=== PATIENT | male | born 1935 | race Caucasian/White ===

== ENCOUNTER 2016-07-17 15:17 | Inpatient (IN) | payer MEDICARE ==
--- NOTE | ~2016-07-17 | HP ---
History And Physical [place] [facility] [place]. [address] NAME: LORNA ENGLAND : 39 STATUS : ADM IN [facility]#: [id number] AGE: 80 ADM/REG DATE : 07/17/16 MR#: [id number] REPORT SERV DATE: 07/17/16 DICTATED BY: EMMETT PANIAGUA DATE: 07/17/16 REPORT STATUS : Draft TRANSCRIBED BY: MODAyla DATE: 07/17/16 DATE OF ADMISSION: 07/17/2016 POINT OF ENTRY: [facility] Emergency Department. PRIMARY COIL WINDER STRAP: Dr. oMhamud. The patient cannot tell me the name of his primary predatory animal hunter at this time. CHIEF COMPLAINT: Shortness of breath and chest pain. HISTORY OF PRESENT ILLNESS: Mr. England is a 80-year-old gentleman with history of COPD, on 3 L by nasal cannula; chronic systolic congestive heart failure, last known ejection fraction approximately 40% to 45%; krr-mbihzmp-ikpvckuiz diabetes mellitus type 2 as well as coronary artery disease, who presents to the emergency department today with a few day history of shortness of breath as well as intermittent episodes of chest pain. The patient currently is on BiPAP and difficult to get history from the patient, but he states that he is having a few days worth of shortness of breath as well as associated wheezing, cough, and occasional sputum production. The patient also reports diffuse anterior chest pain that is intermittent in nature. Denies any radiation to the neck, back, jaw, or left shoulder. The patient reports compliance with his medications, including his Lasix which is on a p.r.n. basis. States he has not used it recently. He denies any lower extremity edema. Initial evaluation in the emergency department notable for an ABG that appears to be well compensated; however, he was taken on 6 L by nasal cannula. Despite ABG, the patient was placed on BiPAP here in the ER for concerns for respiratory distress and impending respiratory fatigue and failure. Remainder of his labs otherwise unremarkable, except for a white count of 14,500. Troponin and BNP are pending at the time of dictation. Chest x-ray does show evidence of volume overload and heart failure. The patient was given Solu-Medrol as well as some IV Lasix as well as placed on BiPAP and admitted to the Hospitalist Service. REVIEW OF SYSTEMS: Comprehensive review of system otherwise negative unless listed in history of present illness. PREVIOUS MEDICAL HISTORY: 1. COPD, on 3 L by nasal cannula. 2. Chronic systolic congestive heart failure, last known ejection fraction of 40% to 45%. 3. Hgs-dzkoxao-xevfgxgfw diabetes mellitus type 2. 4. History of prostate cancer status post prostatectomy. 5. Coronary artery disease with prior coronary artery bypass grafting. 6. Atrial fibrillation, status post cardiac ablation and pacemaker insertion. 7. BPH. History And Physical [address] [address] NAME: LORNA ENGLAND : 39 STATUS : ADM IN [facility]#: [id number] AGE: 80 ADM/REG DATE : 07/17/16 MR#: [id number] REPORT SERV DATE: 07/17/16 DICTATED BY: EMMETT PANIAGUA DATE: 07/17/16 REPORT STATUS : Draft TRANSCRIBED BY: TAMMIE DATE: 07/17/16 8. Hypertension. 9. Hyperlipidemia. 10.History of peripheral arterial disease with bilateral lower extremity revascularization. SURGICAL HISTORY: 1. Cardiac ablation. 2. Pacemaker. 3. CABG. 4. Bilateral orchiectomy. 5. Prostatectomy. 6. C-spine surgery. 7. Umbilical hernia repair surgery. 8. Back surgery. ALLERGIES: NO KNOWN DRUG ALLERGIES. HOME MEDICATIONS: 1. Xanax 0.5 mg q.h.s. 2. Lipitor 40 mg daily. 3. Symbicort two puffs inhalation b.i.d. 4. Carvedilol 12.5 mg b.i.d. 5. Nexium 40 mg daily. 6. Lasix 40 mg daily p.r.n. 7. Atrovent one nebulization q.i.d. p.r.n. 8. Losartan 100 mg daily p.r.n. 9. Metformin 500 mg daily p.r.n. 10.Percocet 10/325 one tablet t.i.d. p.r.n. 11.Potassium chloride 10 mEq daily p.r.n. 12.Seroquel 100 mg q.h.s. SOCIAL HISTORY: He does state he smokes about four to five cigarettes daily. Denies alcohol. Denies illicits. FAMILY MEDICAL HISTORY: Mother with diabetes. Father of complicated congestive heart failure. Siblings with lung cancer. LABORATORIES AND IMAGIN. White count is 14.5, hemoglobin is 12.0, hematocrit is 38.5, platelet count is 183. Neutrophil percentage is 85%. 2. Sodium is 141, potassium 4.4, chloride 105, carbon dioxide 30, BUN 9, creatinine 0.86. 3. Glucose is 165, calcium is 8.5. 4. ABG; pH is 7.38, pCO2 is 47, pO2 is 154, bicarbonate is 27, saturating 90% on 6 L by nasal cannula. 5. EKG per my review shows ventricular paced rhythm. No evidence of any acute ischemia or infarction. 6. Chest x-ray per my review shows cardiomegaly with pacemaker in place. Left base is not History And Physical [address] [address] NAME: LORNA ENGLAND : 37 STATUS : ADM IN [facility]#: [id number] AGE: 80 ADM/REG DATE : 07/17/16 MR#: [id number] REPORT SERV DATE: 07/17/16 DICTATED BY: EMMETT PANIAGUA DATE: 07/17/16 REPORT STATUS : Draft TRANSCRIBED BY: TAMMIE DATE: 07/17/16 well visualized, but does show evidence of heart failure with intravascular volume overload and pulmonary venous congestion. 7. BNP and troponin are pending. PHYSICAL EXAMINATION: VITAL SIGNS: Temperature is 99.1 degrees Fahrenheit, pulse is 70, respirations 14, and saturating 91% on 6 L by nasal cannula, blood pressure 107/57. On recheck, it is now 90s/60s. Saturating well on 30% BiPAP. GENERAL: The patient is asleep, but easily awakens to verbal stimuli. BiPAP is in place. He is a well-developed, well-nourished, obese, male, in no acute distress. HEENT: Atraumatic and normocephalic. Moist mucous membranes. Pupils are equal, round, reactive to light and accommodation. Extraocular movements intact. No scleral icterus. NECK: No jugular venous distention. No carotid bruits. CARDIAC: Regular rate and rhythm. No murmurs, rubs, or gallops. Normal S1 and S2. LUNGS: On BiPAP, does not appear in any distress at this time. Does have diffuse inspiratory wheezes, rales as well as occasional rhonchi in all lung redd. Decreased breath sounds in the bases. ABDOMEN: Obese, soft, nontender, nondistended. Good bowel sounds. No rebound, guarding, or rigidity. EXTREMITIES: Warm and well perfused. No cyanosis or clubbing. Has trace pedal edema. SKIN: Warm and dry. PSYCH: Affect appropriate. NEURO: Somewhat sedated, but easily awakens to verbal stimuli. Cranial nerves II through XII are grossly intact. Speech is normal. Gait not assessed. ASSESSMENT: Mr. England is a 80-year-old gentleman, presents with chest pain, shortness of breath, and found to have evidence of volume overload as well as acute hypoxic respiratory failure and respiratory distress and placed on BiPAP. PROBLEM LIST: 1. Xqvna-vg-rpkabim systolic congestive heart failure. 2. Ihcug-gg-dxbcaft hypoxic respiratory failure. 3. Respiratory distress, requiring BiPAP. 4. Acute chronic obstructive pulmonary disease exacerbation. 5. Chest pain. 6. Leukocytosis. 7. Awx-tdxnntv-rnaewlkhl diabetes mellitus type 2. PLAN: 1. Ppglj-xe-osbgwjj systolic congestive heart failure. According to chest x-ray, he appears to be grossly volume overload. BNP is pending at the time of dictation. We will place the patient on IV Lasix for first 24 hours as well as fluid and sodium restriction and check echocardiogram. 2. Acute COPD exacerbation. Place the patient on steroids, antibiotics as well as frequent bronchodilators and nebulizations. 3. Kztai-gg-oqadkta hypoxic respiratory failure and respiratory distress. The patient now appears much more comfortable on BiPAP therapy, despite an ABG appears to be well History And Physical [address] [address] NAME: LORNA ENGLAND : 39 STATUS : ADM IN PAT#: [id number] AGE: 80 ADM/REG DATE : 07/17/16 MR#: [id number] REPORT SERV DATE: 07/17/16 DICTATED BY: EMMETT PANIAGUA DATE: 07/17/16 REPORT STATUS : Draft TRANSCRIBED BY: TAMMIE DATE: 07/17/16 compensated. We will recheck an ABG later tonight to continue to monitor the patient's respiratory status. We will try to wean the patient off BiPAP sometime in the morning after treatment with appropriate COPD and CHF protocols. 4. Chest pain. EKG is nonischemic. We will continue to monitor with cardiac telemetry. Initial troponin is pending. We will continue to trend out cardiac enzymes overnight. 5. Leukocytosis, likely secondary to the patient's respiratory difficulties. I do not appreciate any evidence of pneumonia at this time. Checking urinalysis as well as procalcitonin. 6. DVT prophylaxis. Lovenox subcutaneously. CODE STATUS: The patient wished to be full code. JCB/MODL Emmett Paniagua MD / [id number] CC: MD Reza Flores M.D.
--- NOTE | ~2016-07-17 | DS ---
Discharge Summary [facility] [address] [place]. [address] NAME: LORNA SANCHEZ : 39 STATUS : ADM IN [facility]#: [id number] AGE: 80 ADM/REG DATE : 07/17/16 MR#: [id number] REPORT SERV DATE: 07/21/16 DICTATED BY: EMMETT OHARA II DATE: 07/21/16 REPORT STATUS : Draft TRANSCRIBED BY: MODL DATE: 07/21/16 ADMISSION DATE: 07/17/2016 DISCHARGE DATE: 07/21/2016 DISCHARGE DIAGNOSIS: 1. Acute on chronic hypoxic respiratory failure, on 3 L at home. 2. Acute exacerbation of chronic obstructive pulmonary disease. 3. Acute on chronic systolic congestive heart failure, EF 40-45%. 4. Constipation. 5. Morbid obesity. 6. Obstructive sleep apnea. 7. Diabetes mellitus type 2, noninsulin dependent. 8. History of coronary artery disease. 9. History of atrial fibrillation. 10.History of benign prostatic hyperplasia. 11.History of hypertension. BRIEF HISTORY OF PRESENT ILLNESS: The patient is a 80-year-old male with the above history, who presented to [facility] due to worsening shortness of breath and intermittent episodes of chest pain. For detailed history and physical examination, please see Dr. Vila's note from 07/17/2016. HOSPITAL COURSE: On admission, the patient was saturating 90% on 6 L with an ABG of 7.38/47/154. The EKG was V paced with no evidence of ischemia, and troponin was negative. Chest x-ray showed cardiomegaly with a pacemaker in place and evidence of CHF, volume overload, and pulmonary venous congestion. His BNP was not extremely elevated and only 50, and he also likely had a COPD component with diffuse wheezes. He was given IV diuretics and treated in the usual fashion for COPD with gradual improvement. Currently, he is back to his home O2 dose of 3 L. He still has some coarseness in his lungs but wheezing is improved. We will taper his steroids and discontinue Levaquin which he has gotten five days off. We will also change his Lasix from p.r.n. to 40 mg daily. Otherwise at this point he appears to be back to his baseline and stable for discharge. His creatinine is 1.0, potassium 4.5. DISCHARGE MEDICATIONS: 1. Lipitor 40 mg p.o. daily. 2. Coreg 12.5 mg p.o. b.i.d. 3. Lasix 40 mg p.o. daily. 4. Nexium 40 mg p.o. daily. 5. MiraLAX 2 packets p.o. daily. 6. Seroquel 100 mg p.o. at bedtime. 7. Xanax 0.5 mg p.o. at bedtime. 8. Prednisone 20 mg p.o. daily x3 more days. 9. Symbicort two puffs inhaled b.i.d. 10.Cozaar 100 mg p.o. daily. 11.Percocet 10/325 mg p.o. t.i.d. p.r.n. pain. Discharge Summary [address] [address] NAME: LORNA SANCHEZ : 39 STATUS : ADM IN [facility]#: [id number] AGE: 80 ADM/REG DATE : 07/17/16 MR#: [id number] REPORT SERV DATE: 07/21/16 DICTATED BY: EMMETT OHARA II DATE: 07/21/16 REPORT STATUS : Draft TRANSCRIBED BY: TAMMIE DATE: 07/21/16 12.Potassium chloride 100 mg p.o. daily. 13.Metformin 250-500 mg p.o. daily. 14.Atrovent one neb inhaled q.4 times a day p.r.n. 15.MiraLAX 600 mg p.o. b.i.d. x7 days. DISCHARGE INSTRUCTIONS: The patient will follow up with Dr. Spears in one to two weeks. Otherwise, Dr. Mohamud in three to four weeks. DICTATED BY: MD CORBIN Rios II/TAMMIE Emmett Ohara II, MD / [id number] CC: MD Reza Rios II, M.D.
[2016-07-17 14:37] LABS: BASOPHILS ABSOLUTE 0.02 10/3/uL (0.0-0.16)
[2016-07-17 14:39] LABS: MANUAL DIFF NO %
[2016-07-17 14:51] LABS: GFR AFRICAN AMERICAN 96 ML/MIN (>=60); GFR NON AFRICAN AMERICAN 83 ML/MIN (>=60)
[2016-07-17 15:03] LABS: ASCORBIC ACID (UR NOT ORDER) NEG (NEG); BILIRUBIN, URINE NEGATIVE (NEG); KETONE, URINE NEGATIVE (NEG); LEUKOCYTE ESTERASE(NOT OR NEG (NEG); NITRITE (URINE) NEG (NEG); WBC (NOT ORDERED) (RFLEX) < 1 (0-5)
[2016-07-17 15:14] LABS: ALLENS TEST Pos; BE (BASE EXCESS) 1.5 MEQ/L (0 +/- 2.5); CARBOXYHEMOGLOBIN 2.3 % (0-3); DEVICE nc; HCO3 (ACTUAL BICARBONATE) 27.2 MEQ/L (23-27); INSTRUMENT SERIAL # 8087; METHEMOGLOBIN 0.3 % (0-3); O2 CONTENT 17.9 VOL% (18-24); OPERATOR ID 14335; PCO2 (CO2 TENSION) 47 MMHG (35-45); PO2 (O2 TENSION) 154 MMHG (79-93); SAMPLE Arterial; pH 7.38 (7.37-7.43)
[2016-07-17 15:15] LABS: LACTATE 1.4 MMOL/L (0.3-2.4)
[~2016-07-17 15:17] MED LIST: ADVAIR; ADVAIR INHALER; ADVAIR230P INH; ADVAIR250 INH; ALTA2.5 PO; AMIT100 PO; AMIT25 PO; AMOXIL500 MG PO; APRES25 PO; ASA5GR PO; ASAB PO; ASABAYER PO; CANNOT RECALL MEDS; COREG3 PO; CORRECTOL5 MG PO; COZAAR100 MG PO; DSS PO; DUONEB INH; FLAG500TAB PO; FLOMAX4 PO; GLUCPH PO; IMDUR30 PO; ISOSORB DIN30 MG PO; K500 PO; KLOR-CON M2020 MEQ PO; L20 PO; L40 PO; LEVAQUIN750 MG PO; LIPITOR40 PO; LORTAB10 PO; LUPRON DEPOT30 MG IM; MIRALAXPKT PO; MONODOX100 MG PO; NASAL DECONGESTANT PO; NEXIUM40 PO; NITROSTAT0.4 MG SL; NORCO1 TAB PO; NYS500UDL PO; OMNICEF300 PO; P10 PO; P20 PO; PLAVIX PO; PR12.5 PO; PREV30 PO; PRIN2.5 PO; PROAIR HFA INH; PROSCAR5 PO; T100 PO; T300 PO; X5 PO
[2016-07-17] MEDS ORDERED: LIPITOR40 PO (15:29)
[2016-07-17] MEDS ORDERED: COREG12 PO (15:29)
[2016-07-17] MEDS ORDERED: SYMBICORT 160/41 INH INH (15:29)
[2016-07-17] MEDS ORDERED: X5 PO (15:30)
[2016-07-17] MEDS ORDERED: COZ50 PO (15:30)
[2016-07-17] MEDS ORDERED: SEROQUEL1C PO (15:30)
[2016-07-17] MEDS ORDERED: PERCOCET 10/3251 TAB PO (15:30)
[2016-07-17] MEDS ORDERED: KLOR-CON M2020 MEQ PO (15:31)
[2016-07-17] MEDS ORDERED: L40 PO (15:31)
[2016-07-17] MEDS ORDERED: NEXIUM40 PO (15:32)
[2016-07-17] MEDS ORDERED: GLUCPH PO (15:32)
[2016-07-17 16:27] LABS: ER CBC TAT 1 Hrs 56 Mins; RED CELL COUNT 4.17 10/6/uL (4.7-6.1); WHITE BLOOD CELLS 14.5 10/3/uL (4.5-10.5)
[2016-07-17 16:28] LABS: HEMATOCRIT 38.5 % (40.0-51.0); MEAN CORPUSCULAR HEMOGLOB 28.8 pg (26.0-34.0); MEAN CORPUSCULAR VOLUME 92.3 fL (80-100)
[2016-07-17 16:29] LABS: MEAN CORPUS HGB CONC 31.2 g/dL (32.0-36.0); MEAN PLATELET VOLUME 9.6 fL (9.2-13.0); PLATELET COUNT 183 10/3/uL (150-400); RBC DISTRIBUTION WIDTH 14.3 % (12.0-16.0)
[2016-07-17 16:30] LABS: LYMPHOCYTES 8.6 %; NEUTROPHILS 84.7 %
[2016-07-17 16:31] LABS: BASOPHILS 0.1 %; BUN (BLOOD UREA NITROGEN) 9 MG/DL (6-23); CHLORIDE, SERUM 105 MMOL/L (96-112); CO2 (CARBON DIOXIDE) 30 MMOL/L (24-34); CREATININE 0.86 MG/DL (0.70-1.30); IMMATURE GRANULOCYTES 0.3 %; MONOCYTES 5.3 %; POTASSIUM, SERUM 4.4 MMOL/L (3.5-5.3); SODIUM, SERUM 141 MMOL/L (135-148)
[2016-07-17 16:32] LABS: CALCIUM, SERUM 8.5 MG/DL (8.5-10.4); EOSINOPHILS ABSOLUTE 0.14 10/3/uL (0.0-0.53); GLUCOSE, SERUM 165 MG/DL (60-99); IMMATURE GRANULOCYTES ABSOLUTE 0.04 10/3/uL (0.0-0.11); LYMPHOCYTES ABSOLUTE 1.25 10/3/uL (0.67-4.30); MONOCYTES ABSOLUTE 0.77 10/3/uL (0.21-1.20); NEUTROPHILS ABSOLUTE 12.28 10/3/uL (2.02-8.40)
[2016-07-17 16:38] LABS: PROCALCITONIN <0.05 ng/mL (<0.5)
[2016-07-17 17:47] LABS: AMPHETAMINES (NOT ORD) NEG (NEG); BARBITURATES (NOT ORDERED NEG (NEG); BENZODIAZEPINES (NOT ORD) NEG (NEG); CANNABINOIDS (THC) NEG (NEG); COCAINE (NOT ORDERED) NEG (NEG); OPIATES POS (NEG); PHENCYCLIDINE(PCP) NEG (NEG); TRICYCLICS NEG (NEG)
[2016-07-17 18:04] LABS: TROPONIN I <0.02 NG/ML (<0.05)
[2016-07-17 21:47] LABS: TROPONIN I <0.02 NG/ML (<0.05)
[2016-07-17 21:48] LABS: CK-MB 0.9 NG/ML; CPK 127 U/L (0-200)
[2016-07-17 23:57] LABS: ALLENS TEST Pos; BIPAP 15/5 cm.H2O; CARBOXYHEMOGLOBIN 0.9 % (0-3); HCO3 (ACTUAL BICARBONATE) 26.4 MEQ/L (23-27); HEMOBLOGIN CONTENT 12.5 G/DL (14-18); INSTRUMENT SERIAL # 8083; METHEMOGLOBIN 0.2 % (0-3); O2 CONTENT 16.7 VOL% (18-24); OPERATOR ID 30013; PCO2 (CO2 TENSION) 45 MMHG (35-45); PO2 (O2 TENSION) 81 MMHG (79-93); SAMPLE Arterial; pH 7.39 (7.37-7.43)
[2016-07-18 04:40] LABS: BASOPHILS 0 %; EOSINOPHILS 0 %; HEMATOCRIT 36.9 % (40.0-51.0); HEMOGLOBIN 11.8 g/dL (13.6-17.8); IMMATURE GRANULOCYTES 0.4 %; IMMATURE GRANULOCYTES ABSOLUTE 0.05 10/3/uL (0.0-0.11); LYMPHOCYTES ABSOLUTE 0.69 10/3/uL (0.67-4.30); MEAN CORPUSCULAR HEMOGLOB 29.1 pg (26.0-34.0); MEAN CORPUSCULAR VOLUME 91.1 fL (80-100); MEAN PLATELET VOLUME 9.4 fL (9.2-13.0); MONOCYTES 1.9 %; MONOCYTES ABSOLUTE 0.26 10/3/uL (0.21-1.20); NEUTROPHILS 92.7 %; NEUTROPHILS ABSOLUTE 12.83 10/3/uL (2.02-8.40); PLATELET COUNT 175 10/3/uL (150-400); RBC DISTRIBUTION WIDTH 14.1 % (12.0-16.0); RED CELL COUNT 4.05 10/6/uL (4.7-6.1); WHITE BLOOD CELLS 13.8 10/3/uL (4.5-10.5)
[2016-07-18 04:55] LABS: MANUAL DIFF NO %
[2016-07-18 05:01] LABS: CALCIUM, SERUM 8.9 MG/DL (8.5-10.4); CHLORIDE, SERUM 102 MMOL/L (96-112); CO2 (CARBON DIOXIDE) 26 MMOL/L (24-34); CPK 144 U/L (0-200); CREATININE 1.11 MG/DL (0.70-1.30); GFR AFRICAN AMERICAN 73 ML/MIN (>=60); GFR NON AFRICAN AMERICAN 63 ML/MIN (>=60); POTASSIUM, SERUM 4.4 MMOL/L (3.5-5.3); SODIUM, SERUM 138 MMOL/L (135-148); TROPONIN I <0.02 NG/ML (<0.05)
[2016-07-18 05:05] LABS: BUN (BLOOD UREA NITROGEN) 16 MG/DL (6-23); CK-MB 1.4 NG/ML; GLUCOSE, SERUM 205 MG/DL (60-99)
[2016-07-19 05:58] LABS: BASOPHILS 0.1 %; BASOPHILS ABSOLUTE 0.01 10/3/uL (0.0-0.16); EOSINOPHILS 0 %; HEMATOCRIT 37.9 % (40.0-51.0); HEMOGLOBIN 12.1 g/dL (13.6-17.8); IMMATURE GRANULOCYTES 0.6 %; IMMATURE GRANULOCYTES ABSOLUTE 0.11 10/3/uL (0.0-0.11); MEAN CORPUS HGB CONC 31.9 g/dL (32.0-36.0); MEAN CORPUSCULAR HEMOGLOB 28.7 pg (26.0-34.0); MEAN PLATELET VOLUME 9.5 fL (9.2-13.0); MONOCYTES 3.6 %; MONOCYTES ABSOLUTE 0.65 10/3/uL (0.21-1.20); NEUTROPHILS 90.7 %; NEUTROPHILS ABSOLUTE 16.19 10/3/uL (2.02-8.40); PLATELET COUNT 222 10/3/uL (150-400); RBC DISTRIBUTION WIDTH 13.8 % (12.0-16.0); RED CELL COUNT 4.21 10/6/uL (4.7-6.1); WHITE BLOOD CELLS 17.9 10/3/uL (4.5-10.5)
[2016-07-19 05:59] LABS: MANUAL DIFF NO %
[2016-07-19 06:18] LABS: ALBUMIN 3.2 G/DL (3.5-5.0); BUN (BLOOD UREA NITROGEN) 28 MG/DL (6-23); CALCIUM, SERUM 9.5 MG/DL (8.5-10.4); CHLORIDE, SERUM 101 MMOL/L (96-112); CO2 (CARBON DIOXIDE) 28 MMOL/L (24-34); CREATININE 1.07 MG/DL (0.70-1.30); GFR AFRICAN AMERICAN 77 ML/MIN (>=60); GFR NON AFRICAN AMERICAN 66 ML/MIN (>=60); GLUCOSE, SERUM 175 MG/DL (60-99); PHOSPHORUS, SERUM 3.5 MG/DL (2.5-4.5); POTASSIUM, SERUM 4.2 MMOL/L (3.5-5.3); SODIUM, SERUM 137 MMOL/L (135-148)
[2016-07-20 05:14] LABS: BASOPHILS 0.1 %; BASOPHILS ABSOLUTE 0.01 10/3/uL (0.0-0.16); EOSINOPHILS 0 %; HEMATOCRIT 38.2 % (40.0-51.0); HEMOGLOBIN 12.3 g/dL (13.6-17.8); IMMATURE GRANULOCYTES 0.6 %; IMMATURE GRANULOCYTES ABSOLUTE 0.09 10/3/uL (0.0-0.11); LYMPHOCYTES 7.5 %; LYMPHOCYTES ABSOLUTE 1.05 10/3/uL (0.67-4.30); MEAN CORPUS HGB CONC 32.2 g/dL (32.0-36.0); MEAN CORPUSCULAR HEMOGLOB 29.1 pg (26.0-34.0); MEAN CORPUSCULAR VOLUME 90.5 fL (80-100); MEAN PLATELET VOLUME 9.1 fL (9.2-13.0); MONOCYTES ABSOLUTE 0.56 10/3/uL (0.21-1.20); NEUTROPHILS 87.8 %; NEUTROPHILS ABSOLUTE 12.26 10/3/uL (2.02-8.40); PLATELET COUNT 230 10/3/uL (150-400); RED CELL COUNT 4.22 10/6/uL (4.7-6.1)
[2016-07-20 05:15] LABS: MANUAL DIFF NO %
[2016-07-20 05:30] LABS: BUN (BLOOD UREA NITROGEN) 30 MG/DL (6-23); CALCIUM, SERUM 9.2 MG/DL (8.5-10.4); CHLORIDE, SERUM 101 MMOL/L (96-112); CO2 (CARBON DIOXIDE) 31 MMOL/L (24-34); GFR AFRICAN AMERICAN 83 ML/MIN (>=60); GFR NON AFRICAN AMERICAN 72 ML/MIN (>=60); GLUCOSE, SERUM 173 MG/DL (60-99); POTASSIUM, SERUM 4.5 MMOL/L (3.5-5.3); SODIUM, SERUM 140 MMOL/L (135-148)
[2016-07-21 07:20] LABS: BASOPHILS 0.2 %; BASOPHILS ABSOLUTE 0.02 10/3/uL (0.0-0.16); EOSINOPHILS 0.1 %; EOSINOPHILS ABSOLUTE 0.01 10/3/uL (0.0-0.53); HEMATOCRIT 40.6 % (40.0-51.0); HEMOGLOBIN 12.7 g/dL (13.6-17.8); IMMATURE GRANULOCYTES 1.4 %; IMMATURE GRANULOCYTES ABSOLUTE 0.16 10/3/uL (0.0-0.11); LYMPHOCYTES 23.4 %; LYMPHOCYTES ABSOLUTE 2.62 10/3/uL (0.67-4.30); MEAN CORPUS HGB CONC 31.3 g/dL (32.0-36.0); MEAN CORPUSCULAR HEMOGLOB 28.5 pg (26.0-34.0); MEAN CORPUSCULAR VOLUME 91.2 fL (80-100); MEAN PLATELET VOLUME 8.8 fL (9.2-13.0); MONOCYTES 7.9 %; MONOCYTES ABSOLUTE 0.89 10/3/uL (0.21-1.20); NEUTROPHILS ABSOLUTE 7.51 10/3/uL (2.02-8.40); PLATELET COUNT 203 10/3/uL (150-400); RBC DISTRIBUTION WIDTH 14.3 % (12.0-16.0); RED CELL COUNT 4.45 10/6/uL (4.7-6.1); WHITE BLOOD CELLS 11.2 10/3/uL (4.5-10.5)
[2016-07-21 07:21] LABS: MANUAL DIFF NO %
[2016-07-21 07:26] LABS: CALCIUM, SERUM 9.2 MG/DL (8.5-10.4); CHLORIDE, SERUM 101 MMOL/L (96-112); SODIUM, SERUM 142 MMOL/L (135-148)
[2016-07-21 07:30] LABS: BUN (BLOOD UREA NITROGEN) 35 MG/DL (6-23); CO2 (CARBON DIOXIDE) 35 MMOL/L (24-34); GFR AFRICAN AMERICAN 67 ML/MIN (>=60); GFR NON AFRICAN AMERICAN 58 ML/MIN (>=60); GLUCOSE, SERUM 106 MG/DL (60-99)
[2016-07-21] MEDS ORDERED: MIRALAX POWDER1 PKT PO (08:55)
[2016-07-21] MEDS ORDERED: P20 PO (08:56)
[2016-07-21] MEDS ORDERED: MUCINEX600 MG PO (08:58)
[2016-10-25] MEDS ORDERED: ATROVENTUD INH (23:05)
== END 2016-07-21 10:46 | disposition home health service (06) | DRG 291 ==
LOC: ER 15:17 → 7NO 17:50
PROVIDERS: Emergency Medicine; Hospitalist; Internal Medicine
PROC: 5A09357 Assistance with Respiratory Ventilation, Less than 24 Consecutive Hours, Continuous Positive Airway Pressure (ICD-10-PCS; principal; 2016-07-17)
DX: I50.23 Acute on chronic systolic (congestive) heart failure (principal); J96.21 Acute and chronic respiratory failure with hypoxia; Z99.81 Dependence on supplemental oxygen; J44.1 Chronic obstructive pulmonary disease with (acute) exacerbation; E11.9 Type 2 diabetes mellitus without complications; K59.00 Constipation, unspecified; E66.01 Morbid (severe) obesity due to excess calories; Z68.38 Body mass index [BMI] 38.0-38.9, adult; N40.0 Benign prostatic hyperplasia without lower urinary tract symptoms; I48.91 Unspecified atrial fibrillation; E78.5 Hyperlipidemia, unspecified; I73.9 Peripheral vascular disease, unspecified; Z90.79 Acquired absence of other genital organ(s); Z95.1 Presence of aortocoronary bypass graft; Z95.0 Presence of cardiac pacemaker; Z83.3 Family history of diabetes mellitus
CPT/HCPCS: 36600; 71010; 80048; 80069; 80305; 81001; 82550; 82553; 82805; 82962; 83605; 83735; 83880; 84145; 84484; 85025; 87040; 87205; 93005; 94640; 94660; 94667; 94668; 99285; A9270-GY; C8929; J1956; J2930; Q9957

== ENCOUNTER 2016-10-17 13:45 | Inpatient (IN) | payer MEDICARE ==
[~2016-10-17] VITALS: Ht 167.6 cm; Wt 121.6 kg
--- NOTE | ~2016-10-17 | CN ---
Consultation Report [facility] [address] [place]. [address] NAME: OLRNA SANCHEZ : 39 STATUS : DIS IN PAT#: [id number] AGE: 80 ADM/REG DATE : 10/17/16 MR#: [id number] REPORT SERV DATE: 10/22/16 DICTATED BY: GIOVANI DAVID DATE: 10/21/16 REPORT STATUS : Draft TRANSCRIBED BY: MODL DATE: 10/21/16 CONSULT DATE OF CONSULTATION: 10/18/2016 DICTATED BY: Eunice Boswell, nurse practitioner, dictating for Dr. Giovani David. HISTORY OF PRESENT ILLNESS: This 80-year-old white male was admitted with diverticulitis. He was last seen in clinic 09/21/2016 for constipation and left lower quadrant pain. The reported pain was consistent for three to four months, often relieved with bowel function. He had constipation exacerbated by chronic opioid use. On 09/21/2016, labs revealed normal WBC, hemoglobin slightly low at 12.2, normal comprehensive metabolic panel except an elevated glucose of 136. He had a CT scan of the abdomen and pelvis with IV and p.o. contrast on 09/26/2016 revealing colonic diverticula without inflammation or obstruction noted. He had fatty liver, extensive atherosclerotic disease of the abdominal aorta and iliac arteries without aneurysm noted. He was started on Linzess 290 mcg daily for constipation. The patient reports this was not helpful, and he had to take two to have a bowel movement. He was due for a followup in the clinic tomorrow. He presented to the emergency room with a 5-day history of abdominal pain, nausea, and decreased appetite. CT scan on admission reveals multifocal diverticulitis at the hepatic flexure and junction of the descending and sigmoid colon. PAST MEDICAL HISTORY: 1. GERD. 2. Colon polyps. 3. Hypertension. 4. CHF. 5. COPD. 6. Type 2 diabetes mellitus. 7. Hyperlipidemia. 8. Arthritis. 9. Chronic back pain. 10.Sleep apnea. 11.Prostate cancer. PAST SURGICAL HISTORY: 1. His last colonoscopy was 02/09/2015, remarkable for left-sided diverticulosis with removal of hyperplastic polyp and a poor prep. He had an EGD, 02/09/2015, remarkable for a normal esophagus dilated to 48-Irish, chronic gastritis, negative for Helicobacter pylori. 2. Cystoscopy, 12/2014; TURP, 12/2013; bilateral orchiectomy, 02/2011; cardiac stent, 2006; CABG x5, 1991; pacemaker insertion x3 per Dr. Chavez; back surgery; and neck surgery. Consultation Report [place] [address] [place]. [address] NAME: LORNA SANCHEZ : 39 STATUS : DIS IN PAT#: [id number] AGE: 80 ADM/REG DATE : 10/17/16 MR#: [id number] REPORT SERV DATE: 10/22/16 DICTATED BY: GIOVANI DAVID DATE: 10/21/16 REPORT STATUS : Draft TRANSCRIBED BY: TAMMIE DATE: 10/21/16 ALLERGIES: JAKE INHIBITORS. MEDICATIONS: Home medications include albuterol, Xanax, aspirin 162 mg daily, Lipitor, Symbicort, Coreg, Nexium 40 mg daily, Lasix, losartan, metformin, oxycodone t.i.d., Afrin, potassium chloride, Seroquel, Linzess 290 mcg daily, and milk of magnesia p.r.n. SOCIAL HISTORY: The patient is . He is not disabled. He smokes four to five cigarettes daily. He denies any use of alcohol or drugs. FAMILY HISTORY: Mother had diabetes mellitus and father CHF. No GI malignancies. REVIEW OF SYSTEMS: Otherwise unremarkable for constitutional, endocrine, neurologic, psychiatric, ocular, ENT, pulmonary, cardiovascular, GI, , or rheumatologic symptoms except for as noted above. PHYSICAL EXAMINATION: VITAL SIGNS: Temp 96.8, pulse 60, respirations 18, and BP 130/60. GENERAL: Alert and oriented x3. In no acute distress. HEENT: Grossly within normal limits. LUNGS: Diminished breath sounds bilaterally. CARDIOVASCULAR: Regular rate and rhythm. ABDOMEN: Obese, soft, significantly tender right upper quadrant with moderate diffuse tenderness to palpation, active bowel sounds, no masses or hepatosplenomegaly noted. EXTREMITIES: Without edema. IMAGING: CT scan of the abdomen and pelvis as noted above. Mesenteric Doppler with increased velocity in celiac artery concerning for some stenosis. Echocardiogram pending. LABORATORY DATA: WBC was elevated at 21.1 on admission and is still elevated at 15.5. Hemoglobin 13.2 on admission, now 11.4. Potassium 4.1, BUN 13, creatinine 1.04. Liver enzymes normal. Glucose mildly elevated at 136. Albumin low at 2.6. Troponin negative. Glycosylated hemoglobin 7%, high. BNP normal. IMPRESSION: 1. Acute multifocal diverticulitis with abdominal pain. 2. Leukocytosis secondary to #1. 3. Nausea secondary to #1. 4. Gastroesophageal reflux disease. 5. Chronic opioid-induced constipation. PLAN: Continue IV antibiotics and close monitoring. Surgery is following as well with no Consultation Report [address] [address] NAME: LORNA SANCHEZ : 39 STATUS : DIS IN PAT#: [id number] AGE: 80 ADM/REG DATE : 10/17/16 MR#: [id number] REPORT SERV DATE: 10/22/16 DICTATED BY: GIOVANI DAVID DATE: 10/21/16 REPORT STATUS : Draft TRANSCRIBED BY: TAMMIE DATE: 10/21/16 plans for surgical intervention unless the patient has perforation, abscess, or failure of therapy after prolonged attempt. We recommend continuing Protonix, and we will start Relistor 450 mg daily for opioid-induced constipation. DICTATED BY: Giovani David M.D. /TAMMIE Giovani David M.D. / [id number] CC: Reza Spears M.D.
--- NOTE | ~2016-10-17 | HP ---
History And Physical [address] [place]. [address] NAME: LORNA SANCHEZ : 39 STATUS : ADM IN [facility]#: [id number] AGE: 80 ADM/REG DATE : 10/17/16 MR#: [id number] REPORT SERV DATE: 10/17/16 DICTATED BY: CAILIN NGUYEN DATE: 10/17/16 REPORT STATUS : Draft TRANSCRIBED BY: MODAyla DATE: 10/17/16 DATE OF ADMISSION: 10/17/2016 CONCRETE STONE FABRICATOR: Dr. David. The patient is a 80-year-old male, who presented to [facility] because of the complaint of abdominal pain in the periumbilical area and the left lower abdomen going on for approximately 5 days. The patient said that he was having abdominal pain as well as he had sensation of being chilled yesterday but he did not measure his temperature. He had nausea but no vomiting. He also has cough and he is coughing clear phlegm. He denies any chest pain. A 14-point review of systems done. No chest pain. No shortness of breath. No objective fever. No headaches. PAST MEDICAL HISTORY: Very extensive. Was taken from the patient as well as from the medical records. According to medical records, the patient had diverticulitis in July 2013 when he was found to have diverticulitis and at that time, he was seen by ropewalk rope maker, Dr. Argueta as well as the patient had a colonoscopy recently done by ropewalk rope maker, Dr. David. It was done on 02/09/2015, and at that time, colonoscopy showed moderate diverticulosis in the sigmoid colon and in the descending colon, he had a polyp removed at that time. The patient also has constipation. He is on opioids and pain medications. Other medical problems are very extensive. Last time the patient was in this hospital on August 20 this year when he had acute on chronic hypoxic respiratory failure, COPD exacerbation, he is chronically on 3 L nasal cannula. He had also acute on chronic CHF exacerbation. His systolic ejection fraction is 40 to 45%. Morbid obesity. Obstructive sleep apnea. Diabetes type 2 non-insulin dependent. History of coronary artery disease. History of atrial fibrillation. History of BPH. History of prostate cancer. History of hypertension. History of prostate cancer, status post prostatectomy. Coronary artery disease with a prior coronary artery bypass surgery. Atrial fibrillation status post cardiac ablation and pacemaker insertion. Hypertension. Hyperlipidemia. History of peripheral arterial disease with bilateral lower extremity revascularization. PAST SURGICAL HISTORY: Includes cardiac ablation, pacemaker, coronary artery bypass grafting, bilateral orchiectomy, prostatectomy, C-spine surgery, umbilical hernia repair surgery, and back surgery. His international trade compliance manager is Dr. Mohamud. ALLERGIES: HE IS ALLERGIC TO JAKE INHIBITORS. HOME MEDICATIONS: Include albuterol two puffs inhaled twice a day p.r.n.; Xanax 0.5 mg daily; aspirin 162 mg a day; Lipitor 40 mg a day; Symbicort 160/4.5 two puffs inhaled twice a day; Coreg 12.5 p.o. b.i.d.; Nexium 40 mg daily; Lasix 40 mg daily p.r.n.; losartan 100 mg daily p.r.n.; metformin 500 mg daily; oxycodone with acetaminophen one tablet p.o. three times a day p.r.n.; Afrin nasal spray daily p.r.n.; potassium chloride 10 mEq daily; and History And Physical [address] [address] NAME: LORNA SANCHEZ : 37 STATUS : ADM IN [facility]#: [id number] AGE: 80 ADM/REG DATE : 10/17/16 MR#: [id number] REPORT SERV DATE: 10/17/16 DICTATED BY: CAILIN NGUYEN DATE: 10/17/16 REPORT STATUS : Draft TRANSCRIBED BY: TAMMIE DATE: 10/17/16 Seroquel 10 mg p.o. at bedtime. SOCIAL HISTORY: He smokes about 4 to 5 cigarettes daily, used to smoke more, planning to quit. Denies alcohol. Denies recreational drugs. FAMILY HISTORY: Mother has diabetes. Father from complication of congestive heart failure. REVIEW OF SYSTEMS: All 14-point review of systems done and negative except what is stated in the history of present illness. PHYSICAL EXAMINATION: GENERAL: Obese male, not in acute distress, resting quietly. VITAL SIGNS: Blood pressure 129/65, temperature 97.3, heart rate 69, respirations 16, and oxygen saturation was 97 on room air. HEENT: Head atraumatic, normocephalic. Conjunctivae clear. Pupils are equal and reactive to light and accommodation. Extraocular muscles are intact. NECK: Supple. Trachea is midline. No supraclavicular or cervical lymphadenopathy. LUNGS: Diminished breath sounds bilaterally. Decreased respiratory effort. CARDIOVASCULAR SYSTEM: Regular rate and rhythm and the pain point of maximal impulse is not displaced. ABDOMEN: Very obese. There is tenderness to palpation in the periumbilical area right mid abdomen, right upper quadrant, left lower quadrant. There are diminished bowel sounds that is severely tender to palpation but soft. There is no guarding or rebound. EXTREMITIES: No clubbing or cyanosis. Trace edema. PSYCHIATRIC: Normal mood and affect. NEUROLOGIC: Awake, alert, and oriented in time, place, and person. Muscle strength is 5/5 bilaterally on the upper and lower extremities. LABORATORY RESULTS: White count 21.1, hemoglobin 13.2, hematocrit 41.5, and platelet count 221. Sodium 138, potassium 4.4, chloride 101, carbon dioxide 30, BUN 13, creatinine 1.12. Blood sugar 151. Total bilirubin 0.9, ALT 32, AST 18, and lipase 75. BNP 79.3. Lactic acid level 1.6. Chest x-ray, CABG, pacemaker; no acute cardiopulmonary abnormality. Urinalysis, no evidence of UTI. CT of the abdomen and pelvis, already, without contrast was done, but the official radiology report is pending. I spoke with Dr. Sanchez and Dr. Sanchez, radiologist read the CT abdomen and pelvis, and he told me that it shows 2 areas of diverticulitis, one is at the hepatic flexure, significant segment of diverticulitis and the other one at the sigmoid junction with the descending colon, and also Dr. Sanchez reported that there is no abscess and there is not any perforation. EKG showed a ventricularly paced rhythm with a rate of 7 beats per minute. His chest x-ray was done also today, did not show any acute cardiopulmonary abnormality. ASSESSMENT AND PLAN: This is a 80-year-old male with a past medical history of congestive heart failure, chronic respiratory failure, oxygen dependent, obstructive sleep apnea, History And Physical [address] [address] NAME: LORNA SANCHEZ : 39 STATUS : ADM IN [facility]#: [id number] AGE: 80 ADM/REG DATE : 10/17/16 MR#: [id number] REPORT SERV DATE: 10/17/16 DICTATED BY: CAILIN NGUYEN DATE: 10/17/16 REPORT STATUS : Draft TRANSCRIBED BY: TAMMIE DATE: 10/17/16 morbid obesity, chronic constipation secondary to narcotics, history of coronary artery disease with a history of coronary artery bypass grafting and stents in his heart and legs, and history of diverticulitis in 2013, presented 1. With acute recurrent diverticulitis. 2. Leukocytosis secondary to above. 3. Nausea secondary to above. 4. Abdominal pain secondary to above. 5. Morbid obesity. 6. Cough with clear sputum production. 7. History of CHF chronic systolic dysfunction with ejection fraction of 40% to 45%. 8. History of chronic atrial fibrillation. We will admit the patient to cardiac telemetry bed. Monitor him closely. PLAN: 1. The patient will be kept on the n.p.o. status, and he will be given gentle IV fluid hydration. Taking into consideration of the possibility of volume overload, we will give him very gentle IV fluid hydration. If necessary, my partner can increase the IV fluid rate tomorrow. In the same time, we will put him on intravenous antibiotics, Levaquin and Flagyl and give him reasonable pain control with intravenous morphine. 2. For his diverticulitis, since it is very extensive, I will order mesenteric duplex ultrasound on this patient, and I will consult ropewalk rope maker, Dr. David who did colonoscopy on him in 2015 as well as I will consult General Surgery on-call because of elevated white count and second episode of diverticulitis with an extensive picture. I will also await on official Radiology report but I already discussed the findings with the radiologist. Also according to previous CT scans in 2013, he had diverticulitis at the sigmoid area but the new focus at the hepatic flexure looks like new. 3. We will give him symptomatic treatment of nausea control. We will also monitor his cardiac status. 4. We will give him breathing treatment with DuoNebs. I asked the patient to bring his CPAP mask to wear at night. 5. My partner will see this patient starting tomorrow morning. MG/MODL Cailin Nguyen M.D. / [id number] CC: Manjeet Deleon M.D. Alan Shikoh, M.D.
--- NOTE | ~2016-10-17 | CN ---
Consultation Report [facility] [address] [place]. [address] NAME: LORNA SANCHEZ : 39 STATUS : ADM IN PAT#: [id number] AGE: 80 ADM/REG DATE : 10/17/16 MR#: [id number] REPORT SERV DATE: 10/18/16 DICTATED BY: ONOFRE LONDON III DATE: 10/17/16 REPORT STATUS : Draft TRANSCRIBED BY: MODAyla DATE: 10/17/16 ER CONSULTATION NOTE DATE OF CONSULTATION: 10/17/2016 HISTORY OF PRESENT ILLNESS: The patient is a 80-year-old morbidly obese white male, admitted to the ED with a five-day history of severe abdominal pain that had progressed with nausea and minimal vomiting and tolerating very little food. The patient has had some loose stools, but no good bowel movements for the last few days. He had very little intake other than some milk and bread and some water. His last colonoscopy was about two years ago by Dr. Argueta. He has had pain in the right lower quadrant and the left mid quadrant, but no real localization until the last couple days. PAST MEDICAL HISTORY: He has morbid obesity; history of diverticulitis back in 2013; COPD, on 3 L of nasal cannula at home; history of congestive heart failure with systolic and diastolic components; history of obstructive sleep apnea, history of peripheral artery disease with some revascularization in his legs in the past. SOCIAL HISTORY: Negative for alcohol, but the patient still smokes some although he is trying to quit. REVIEW OF SYSTEMS: Consistent with no particular weight loss, severe overall weakness with loss of appetite and nausea with abdominal pain that has been more diffuse, but in the right-side more lately, but also in the left side, but less in the middle. The family history is noncontributory. Further review of system is consistent with that the patient has had some prostate problems and right orchiectomy in the past. He has had problems with C-spine and an umbilical hernia is his only abdominal operation, history of benign prostatic hypertrophy. PHYSICAL EXAMINATION: GENERAL: With a morbid obese patient with severe wheezing and some rales and rhonchi in the bases equally. His wheezing was audible from across the room. HEART: Regular rate and rhythm, ABDOMEN: Morbidly obese and exquisitely tender, mostly in the left mid abdomen and the right lower quadrant. Bowel sounds were diminished and he had a healed umbilical hernia incision. His abdomen was extremely large and difficult to examine due to its lack of abdominal tone with stretching of the abdominal muscles completely. RECTAL: Without impaction. EXTREMITIES: Physical exam of the lower extremities was relatively anatomic. LABORATORY DATA: Lab was 21,000 white count, hemoglobin and hematocrit 13.2 and 41.5. BNP is 79.3 and electrolytes were fairly unremarkable with a creatinine 1.12, BUN 13. The CT is reviewed and shows diverticular disease in the left descending sigmoid colon Consultation Report [place] [id number] [place]. [address] NAME: LORNA SANCHEZ : 39 STATUS : ADM IN PAT#: [id number] AGE: 80 ADM/REG DATE : 10/17/16 MR#: [id number] REPORT SERV DATE: 10/18/16 DICTATED BY: ONOFRE LONDON III DATE: 10/17/16 REPORT STATUS : Draft TRANSCRIBED BY: MODAyla DATE: 10/17/16 junctional area with multiple diverticuli all over as well as another area in the hepatic flexure that appears to be acutely inflamed. IMPRESSION: Acute diverticulitis in two locations and agree with conservative treatment, gastrointestinal rest, keeping the patient relatively low to no p.o. intake with antibiotics and continued followup with glycemic control as well as assistance with rehydration slowly and management of his chronic obstructive pulmonary disease. Surgical consultation note concludes with the caveat that GI rest, antibiotics, glycemic control, follow up with hydration, but no surgical plans unless perforation or abscess or failure of therapy after prolonged attempts are made. RB/TAMMIE Onofre London III, M.D. / [id number] CC: Manjeet Deleon M.D.
--- NOTE | ~2016-10-17 | DS ---
Discharge Summary [facility] [address] [place]. [address] NAME: LORNA SANCHEZ : 39 STATUS : DIS IN PAT#: [id number] AGE: 80 ADM/REG DATE : 10/17/16 MR#: [id number] REPORT SERV DATE: 10/21/16 DICTATED BY: JOLANTA AMBROCIO DATE: 10/21/16 REPORT STATUS : Draft TRANSCRIBED BY: MODL DATE: 10/21/16 ADMISSION DATE: 10/17/2016 DISCHARGE DATE: 10/21/2016 REASON FOR ADMISSION: This is a 80-year-old male, who had presented to [facility] with complaints of abdominal pain and periumbilical area and left lower abdomen for approximately five days and having chills. In the emergency room, CT scan of the abdomen and pelvis had showed two areas of diverticulitis, one at the hepatic flexure and a significant segment of diverticulitis at the sigmoid junction and the descending colon. No abscess or perforation seen. The patient was admitted for acute diverticulitis. DISCHARGE DIAGNOSES: 1. Acute diverticulitis. 2. Morbid obesity. 3. Chronic obstructive pulmonary disease. 4. Systolic congestive heart failure with ejection fraction of 45%. HOSPITAL COURSE: Acute diverticulitis. The patient was admitted, started on IV fluids. Made n.p.o. and started on IV Levaquin and Flagyl. Consult was also placed to the surgeon, Dr. Edwardo London, who followed along with the patient as well as the patient's director of enterprise applications, Dr. David. They agreed with treatment. The patient had great improvement with his abdominal pain and so he was then resumed on clear-liquid diet and full liquid diet. He tolerated both effectively, then transitioned to the GI soft bland diet. He also tolerated that as well. The only deficiency was that the patient had not had bowel movements while he was at the hospital, gave him suppository and milk of magnesia, and he did have bowel movements x3 last night. We converted him to oral antibiotics, and he will need to continue those through 10/23/2016 for to complete a seven-day course. We will have him follow up with his primary care in one to two weeks. DISCHARGE MEDICATIONS: 1. Symbicort 160/4.5 two puffs b.i.d. 2. Lipitor 40 mg p.o. daily. 3. Coreg 12.5 mg p.o. b.i.d. 4. Cozaar 50 mg p.o. daily. 5. Xanax 0.5 mg p.o. q.h.s. 6. Percocet 10/325 one tab t.i.d. p.r.n. 7. Seroquel 100 mg p.o. q.h.s.. 8. Lasix 40 mg p.o. p.r.n. 9. Potassium chloride 10 mEq p.o. daily. 10.Nexium 40 mg p.o. daily. 11.Metformin 500 mg p.o. daily. 12.Aspirin 81 mg p.o. daily. 13.Albuterol p.r.n. 14.Aspirin p.r.n. 15.Levaquin 750 mg p.o. daily x2 more days. 16.Flagyl 500 mg p.o. t.i.d. x2 more days. Discharge Summary [address] [address] NAME: LORNA SANCHEZ : 39 STATUS : DIS IN PAT#: [id number] AGE: 80 ADM/REG DATE : 10/17/16 MR#: [id number] REPORT SERV DATE: 10/21/16 DICTATED BY: JOLANTA AMBROCIO DATE: 10/21/16 REPORT STATUS : Draft TRANSCRIBED BY: TAMMIE DATE: 10/21/16 DISCHARGE PLAN: The patient is discharged home and follow up with primary care, Dr. Reza Spears in one to two weeks. This dictation was performed in collaboration with Dr. Jolanta Ambrocio. Total discharge time greater than 30 minutes. TDR/MORENOL Pedro Joycelyn JerryMervinKRISTIE Jolanta Ambrocio M.D. / [id number] CC: Manjeet Seay M.D.
[~2016-10-17 13:45] MED LIST changes: +COREG12 PO; +COZ50 PO; +MIRALAX POWDER1 PKT PO; +MUCINEX600 MG PO; +PERCOCET 10/3251 TAB PO; +SEROQUEL1C PO; +SYMBICORT 160/41 INH INH
[2016-10-17 14:36] LABS: BASOPHILS 0.1 %; BASOPHILS ABSOLUTE 0.03 10/3/uL (0.0-0.16); EOSINOPHILS 0.9 %; EOSINOPHILS ABSOLUTE 0.18 10/3/uL (0.0-0.53); HEMATOCRIT 41.5 % (40.0-51.0); HEMOGLOBIN 13.2 g/dL (13.6-17.8); IMMATURE GRANULOCYTES 0.5 %; LYMPHOCYTES 7.5 %; LYMPHOCYTES ABSOLUTE 1.59 10/3/uL (0.67-4.30); MEAN CORPUS HGB CONC 31.8 g/dL (32.0-36.0); MEAN CORPUSCULAR HEMOGLOB 28.5 pg (26.0-34.0); MEAN PLATELET VOLUME 8.9 fL (9.2-13.0); MONOCYTES 4.9 %; MONOCYTES ABSOLUTE 1.03 10/3/uL (0.21-1.20); NEUTROPHILS 86.1 %; NEUTROPHILS ABSOLUTE 18.18 10/3/uL (2.02-8.40); PLATELET COUNT 221 10/3/uL (150-400); RBC DISTRIBUTION WIDTH 14.6 % (12.0-16.0); RED CELL COUNT 4.63 10/6/uL (4.7-6.1)
[2016-10-17 14:37] LABS: ER CBC TAT 0 Hrs 05 Mins; MANUAL DIFF NO %; MEAN CORPUSCULAR VOLUME 89.6 fL (80-100); WHITE BLOOD CELLS 21.1 10/3/uL (4.5-10.5)
[2016-10-17 14:47] LABS: ASCORBIC ACID (UR NOT ORDER) NEG (NEG); BILIRUBIN, URINE NEGATIVE (NEG); ER URINALYSIS TAT 0 Hrs 15 Mins; KETONE, URINE NEGATIVE (NEG); LEUKOCYTE ESTERASE(NOT OR NEG (NEG); NITRITE (URINE) NEG (NEG); WBC (NOT ORDERED) (RFLEX) 1 (0-5)
[2016-10-17 14:53] LABS: ALBUMIN 3.2 G/DL (3.5-5.0); ALKALINE PHOSPHATASE 94 U/L (45-117); BUN (BLOOD UREA NITROGEN) 13 MG/DL (6-23); CALCIUM, SERUM 9.3 MG/DL (8.5-10.4); CHLORIDE, SERUM 101 MMOL/L (96-112); CO2 (CARBON DIOXIDE) 30 MMOL/L (24-34); CREATININE 1.12 MG/DL (0.70-1.30); GFR AFRICAN AMERICAN 73 ML/MIN (>=60); GFR NON AFRICAN AMERICAN 63 ML/MIN (>=60); GLUCOSE, SERUM 151 MG/DL (60-99); POTASSIUM, SERUM 4.4 MMOL/L (3.5-5.3); SGOT(AST) 18 U/L (5-40); SGPT(ALT) 32 U/L (5-65); SODIUM, SERUM 138 MMOL/L (135-148); TOTAL PROTEIN 7.7 G/DL (6.0-8.5)
[2016-10-17 14:54] LABS: A/G RATIO 0.7 (0.7-1.9); GLOBULIN 4.5 G/DL (2.5-4.1); TOTAL BILIRUBIN 0.9 MG/DL (0-1.2)
[2016-10-17 15:07] LABS: B NATRIURETIC PEPTIDE (BNP) 79.3 PG/ML (< 100.0)
[2016-10-17 15:27] LABS: LACTATE 1.6 MMOL/L (0.3-2.4)
[2016-10-17] MEDS ORDERED: HALF81 PO (15:35)
[2016-10-17] MEDS ORDERED: PROAIR HFA INH (15:36)
[2016-10-17] MEDS ORDERED: AFRIN15 NAS (15:37)
[2016-10-17 21:03] LABS: PROCALCITONIN 0.22 ng/mL (<0.5)
[2016-10-17 21:08] LABS: TROPONIN I <0.02 NG/ML (<0.05)
[2016-10-18 05:44] LABS: BASOPHILS 0.1 %; BASOPHILS ABSOLUTE 0.01 10/3/uL (0.0-0.16); EOSINOPHILS 1.2 %; EOSINOPHILS ABSOLUTE 0.18 10/3/uL (0.0-0.53); HEMOGLOBIN 11.4 g/dL (13.6-17.8); IMMATURE GRANULOCYTES 0.5 %; IMMATURE GRANULOCYTES ABSOLUTE 0.08 10/3/uL (0.0-0.11); LYMPHOCYTES 11.3 %; LYMPHOCYTES ABSOLUTE 1.75 10/3/uL (0.67-4.30); MEAN CORPUS HGB CONC 31.5 g/dL (32.0-36.0); MEAN CORPUSCULAR HEMOGLOB 28.1 pg (26.0-34.0); MEAN CORPUSCULAR VOLUME 89.4 fL (80-100); MEAN PLATELET VOLUME 8.8 fL (9.2-13.0); MONOCYTES 5.7 %; MONOCYTES ABSOLUTE 0.88 10/3/uL (0.21-1.20); NEUTROPHILS 81.2 %; NEUTROPHILS ABSOLUTE 12.58 10/3/uL (2.02-8.40); PLATELET COUNT 185 10/3/uL (150-400); RBC DISTRIBUTION WIDTH 14.4 % (12.0-16.0); RED CELL COUNT 4.05 10/6/uL (4.7-6.1); WHITE BLOOD CELLS 15.5 10/3/uL (4.5-10.5)
[2016-10-18 05:45] LABS: HEMATOCRIT 36.2 % (40.0-51.0); MANUAL DIFF NO %
[2016-10-18 05:50] LABS: A/G RATIO 0.7 (0.7-1.9); ALBUMIN 2.6 G/DL (3.5-5.0); BUN (BLOOD UREA NITROGEN) 13 MG/DL (6-23); CHLORIDE, SERUM 101 MMOL/L (96-112); CO2 (CARBON DIOXIDE) 27 MMOL/L (24-34); CREATININE 1.04 MG/DL (0.70-1.30); GFR AFRICAN AMERICAN 79 ML/MIN (>=60); GFR NON AFRICAN AMERICAN 68 ML/MIN (>=60); GLOBULIN 3.9 G/DL (2.5-4.1); GLUCOSE, SERUM 136 MG/DL (60-99); POTASSIUM, SERUM 4.1 MMOL/L (3.5-5.3); SGOT(AST) 16 U/L (5-40); SGPT(ALT) 28 U/L (5-65); SODIUM, SERUM 136 MMOL/L (135-148); TOTAL BILIRUBIN 0.6 MG/DL (0-1.2); TOTAL PROTEIN 6.5 G/DL (6.0-8.5); TROPONIN I <0.02 NG/ML (<0.05)
[2016-10-18 05:51] LABS: ALKALINE PHOSPHATASE 81 U/L (45-117)
[2016-10-18 06:07] LABS: PROCALCITONIN 0.25 ng/mL (<0.5)
[2016-10-19 07:10] LABS: BASOPHILS 0.1 %; BASOPHILS ABSOLUTE 0.01 10/3/uL (0.0-0.16); EOSINOPHILS 3.8 %; EOSINOPHILS ABSOLUTE 0.45 10/3/uL (0.0-0.53); HEMATOCRIT 33.8 % (40.0-51.0); HEMOGLOBIN 10.9 g/dL (13.6-17.8); IMMATURE GRANULOCYTES 0.4 %; IMMATURE GRANULOCYTES ABSOLUTE 0.05 10/3/uL (0.0-0.11); LYMPHOCYTES 11.4 %; LYMPHOCYTES ABSOLUTE 1.35 10/3/uL (0.67-4.30); MEAN CORPUS HGB CONC 32.2 g/dL (32.0-36.0); MEAN CORPUSCULAR HEMOGLOB 28.6 pg (26.0-34.0); MEAN CORPUSCULAR VOLUME 88.7 fL (80-100); MEAN PLATELET VOLUME 8.9 fL (9.2-13.0); MONOCYTES 5.6 %; MONOCYTES ABSOLUTE 0.66 10/3/uL (0.21-1.20); NEUTROPHILS 78.7 %; NEUTROPHILS ABSOLUTE 9.35 10/3/uL (2.02-8.40); PLATELET COUNT 168 10/3/uL (150-400); RBC DISTRIBUTION WIDTH 14.6 % (12.0-16.0); RED CELL COUNT 3.81 10/6/uL (4.7-6.1); WHITE BLOOD CELLS 11.9 10/3/uL (4.5-10.5)
[2016-10-19 07:11] LABS: MANUAL DIFF NO %
[2016-10-19 07:22] LABS: BUN (BLOOD UREA NITROGEN) 13 MG/DL (6-23); CALCIUM, SERUM 8.9 MG/DL (8.5-10.4); CHLORIDE, SERUM 106 MMOL/L (96-112); CO2 (CARBON DIOXIDE) 27 MMOL/L (24-34); CREATININE 0.93 MG/DL (0.70-1.30); GFR AFRICAN AMERICAN 91 ML/MIN (>=60); GFR NON AFRICAN AMERICAN 78 ML/MIN (>=60); GLUCOSE, SERUM 110 MG/DL (60-99); POTASSIUM, SERUM 4.1 MMOL/L (3.5-5.3); SODIUM, SERUM 140 MMOL/L (135-148)
[2016-10-20 06:23] LABS: BASOPHILS 0.2 %; BASOPHILS ABSOLUTE 0.02 10/3/uL (0.0-0.16); EOSINOPHILS 4.7 %; EOSINOPHILS ABSOLUTE 0.55 10/3/uL (0.0-0.53); HEMATOCRIT 34.2 % (40.0-51.0); HEMOGLOBIN 10.7 g/dL (13.6-17.8); IMMATURE GRANULOCYTES 0.4 %; IMMATURE GRANULOCYTES ABSOLUTE 0.05 10/3/uL (0.0-0.11); LYMPHOCYTES 13.5 %; LYMPHOCYTES ABSOLUTE 1.57 10/3/uL (0.67-4.30); MANUAL DIFF NO %; MEAN CORPUS HGB CONC 31.3 g/dL (32.0-36.0); MEAN CORPUSCULAR HEMOGLOB 27.8 pg (26.0-34.0); MEAN CORPUSCULAR VOLUME 88.8 fL (80-100); MEAN PLATELET VOLUME 8.9 fL (9.2-13.0); MONOCYTES 6.3 %; MONOCYTES ABSOLUTE 0.73 10/3/uL (0.21-1.20); NEUTROPHILS 74.9 %; PLATELET COUNT 205 10/3/uL (150-400); RBC DISTRIBUTION WIDTH 14.8 % (12.0-16.0); RED CELL COUNT 3.85 10/6/uL (4.7-6.1); WHITE BLOOD CELLS 11.6 10/3/uL (4.5-10.5)
[2016-10-20 06:40] LABS: BUN (BLOOD UREA NITROGEN) 13 MG/DL (6-23); CALCIUM, SERUM 8.9 MG/DL (8.5-10.4); CHLORIDE, SERUM 103 MMOL/L (96-112); CO2 (CARBON DIOXIDE) 28 MMOL/L (24-34); CREATININE 1.01 MG/DL (0.70-1.30); GFR AFRICAN AMERICAN 82 ML/MIN (>=60); GFR NON AFRICAN AMERICAN 71 ML/MIN (>=60); GLUCOSE, SERUM 116 MG/DL (60-99); SODIUM, SERUM 137 MMOL/L (135-148)
[2016-10-21] MEDS ORDERED: LEVAQUIN750 MG PO (10:37)
[2016-10-21] MEDS ORDERED: FLAG500TAB PO ×2 (10:40→10:41)
[2016-10-25] MEDS ORDERED: ATROVENTUD INH (23:05)
== END 2016-10-21 14:23 | disposition home health service (06) | DRG 392 ==
LOC: ER 13:45 → 7NO 17:26
PROVIDERS: Hospitalist; Nurse Practitioner Acute Care; Nurse Practitioner Gerontology
DX: K57.32 Diverticulitis of large intestine without perforation or abscess without bleeding (principal); J96.10 Chronic respiratory failure, unspecified whether with hypoxia or hypercapnia; I50.42 Chronic combined systolic (congestive) and diastolic (congestive) heart failure; Z99.81 Dependence on supplemental oxygen; Z68.41 Body mass index [BMI] 40.0-44.9, adult; K76.0 Fatty (change of) liver, not elsewhere classified; E66.01 Morbid (severe) obesity due to excess calories; K59.03 Drug induced constipation; T40.2X5A Adverse effect of other opioids, initial encounter; I70.0 Atherosclerosis of aorta; I25.10 Atherosclerotic heart disease of native coronary artery without angina pectoris; K21.9 Gastro-esophageal reflux disease without esophagitis; F17.210 Nicotine dependence, cigarettes, uncomplicated; E11.9 Type 2 diabetes mellitus without complications; E78.5 Hyperlipidemia, unspecified; G47.33 Obstructive sleep apnea (adult) (pediatric); J44.9 Chronic obstructive pulmonary disease, unspecified; I48.2 Chronic atrial fibrillation; I70.208 Unspecified atherosclerosis of native arteries of extremities, other extremity; Z85.46 Personal history of malignant neoplasm of prostate; Z86.010 Personal history of colon polyps; Z95.1 Presence of aortocoronary bypass graft; Z95.0 Presence of cardiac pacemaker; Z95.5 Presence of coronary angioplasty implant and graft; Z79.82 Long term (current) use of aspirin; Z79.84 Long term (current) use of oral hypoglycemic drugs; Z79.891 Long term (current) use of opiate analgesic; Z87.19 Personal history of other diseases of the digestive system; Z79.51 Long term (current) use of inhaled steroids
CPT/HCPCS: 71010; 74020; 74176; 80048; 80053; 81001; 82962; 83036; 83605; 83690; 83735; 83880; 84145; 84484; 85025; 87040; 93005; 93975; 94640; 99285; A9270-GY; J1940; J1956; J2405